=== PATIENT | female | born 1955 | race Caucasian/White ===

== ENCOUNTER 2020-09-26 19:34 | Emergency (ER) | payer MEDICARE, OTHER ==
[~2020-09-26] VITALS: Ht 163.8 cm; Wt 84.0 kg
[~2020-09-26 19:34] MED LIST: ESTRACE1 MG PO; FUROSEMIDE40 MG PO; KLOR-CON M2020 MEQ PO; LEVOTHYROXIN125 MCG PO; MULTI VIT PO; OMEPRAZOLE20.6 MGDR PO; PRAVASTATIN20 MG PO; PROGESTERONE100 MG PO; VITAMIN D1000 UNIT PO
[2020-09-26] MEDS ORDERED: HYDROCHLOROT25 MG PO (20:05)
[2020-09-26] MEDS ORDERED: COZAAR100 MG PO (20:06)
[2020-09-26] MEDS ORDERED: MELOXICAM7.5 MG PO (20:06)
[2020-09-26 20:28] LABS: IMMATURE GRANULOCYTES 0.4 % (0.0-5.0); MEAN CELL VOLUME 89.2 fL CALC (80.0-100.0); MEAN CORPUSCULAR HGB 29.3 pG CALC (26.0-32.0); MEAN CORPUSCULAR HGB CONC 32.9 g/dL CAL (32.0-36.0); NEUT# 3.13 thou/uL (2.00-7.15); RED BLOOD COUNT 3.89 mill/uL (4.20-5.60); RED CELL DISTRI WIDTH 15.2 % (11.5-15.5)
[2020-09-26 20:31] LABS: HEMATOCRIT 34.7 % (37.0-47.0); HEMOGLOBIN 11.4 g/dl (12.0-16.0)
[2020-09-26 20:46] LABS: ALBUMIN 4.2 g/dL (3.2-5.0); ALKALINE PHOSPHATASE 88 u/l (38-126); AMYLASE 69 u/l (30-110); BILIRUBIN, TOTAL 0.3 mg/dL (0.0-1.4); BUN 18 mg/dL (8-23); BUN/CREATININE RATIO 20 (12-20 (CALC)); CARBON DIOXIDE 32 mmol/l (22-30); CHLORIDE 95 mmol/l (95-108); CREATININE 0.9 mg/dL (0.5-1.0); GFR > 60 ML/MIN (>=60 (CALC)); GFR FOR AFR.AMER. > 60 ML/MIN (>=60 (CALC)); LIPASE 89 u/l (23-300); SODIUM 135 mmol/l (137-146)
[2020-09-26 20:47] LABS: ANION GAP 11 (6-22 (CALC)); POTASSIUM 3.1 mmol/l (3.5-5.1); SGOT/AST 54 u/l (9-36)
[2020-09-26 20:49] LABS: ACT PARTIAL THROMBO TIME 23.9 SECONDS (20.0-32.5); PROTHROMBIN TIME 9.7 SECONDS (9.0-12.5)
[2020-09-26 20:57] LABS: D-DIMER 0.28 mg/L (0.19-0.60)
[2020-09-26 20:58] LABS: MYOGLOBIN 37 ng/mL (0 - 62)
[2020-09-26] MEDS ORDERED: TORADOL PO (22:05)
[2020-09-26 22:12] VITALS: BP 131/66
[2020-09-26] MEDS ORDERED: DOXYCYCL HYC100 MG PO (22:22)
== END 2020-09-26 22:45 | disposition home or self-care (01) ==
LOC: ED 19:34
PROVIDERS: Family Medicine
DX: K21.9 Gastro-esophageal reflux disease without esophagitis (principal); J18.9 Pneumonia, unspecified organism; I10 Essential (primary) hypertension; E03.9 Hypothyroidism, unspecified; E78.00 Pure hypercholesterolemia, unspecified; Z20.822 Contact with and (suspected) exposure to COVID-19
CPT/HCPCS: S0164